=== PATIENT | female | born 2000 | race Two or more races ===

== ENCOUNTER 2020-04-26 04:56 | Emergency (ER) | payer OTHER ==
[2020-04-26 06:29] LABS: ABSOLUTE BASOPHILS # (AUTO) 0.1 10^3/uL (0.0-0.2); ABSOLUTE EOSINOPHILS # (AUTO) 0.2 10^3/uL (0.0-0.6); ABSOLUTE LYMPHOCYTES (AUTO) 2.9 10^3/uL (0.5-4.7); ABSOLUTE MONOCYTES (AUTO) 0.7 10^3/uL (0.1-1.4); ABSOLUTE NEUT (AUTO) 4.9 10^3/uL (1.7-8.2); BASOPHILS % (AUTO) 0.7 % (0-2); EOSINOPHILS % (AUTO) 1.8 % (0-6); HEMATOCRIT 40.2 % (36.0-47.0); HEMOGLOBIN 13.8 g/dL (12.0-15.5); LYMPHOCYTES % (AUTO) 33.5 % (13-45); MEAN CORPUSCULAR HEMOGLOBIN 31.2 pg (27.0-33.4); MEAN CORPUSCULAR HGB CONC 34.3 g/dL (32.0-36.0); MEAN CORPUSCULAR VOLUME 91 fl (80-97); MONOCYTES % (AUTO) 7.8 % (3-13); PLATELET COUNT 195 10^3/uL (150-450); RED BLOOD COUNT 4.43 10^6/uL (3.72-5.28); RED CELL DISTRIBUTION WIDTH 13.1 % (11.5-14.0); SEGMENTED NEUTROPHILS % (AUTO) 56.2 % (42-78); TOTAL CELLS COUNTED % (AUTO) 100 %; WHITE BLOOD COUNT 8.7 10^3/uL (4.0-10.5)
--- NOTE | 2020-04-26 06:34 | ER Document Report ---
ED General - General Chief Complaint: Abdominal Pain Stated Complaint: FLANK PAIN Time Seen by Provider: 04/26/20 06:10 - HPI Notes: Chief complaint: Right lower quadrant pain and nausea History of present illness: Previously healthy 19-year-old nulligravida control tablets with irregular menses taking no other medications and with no known allergies or prior surgery presents reporting she awakened about 90 minutes ago with severe right lower quadrant pain radiating into right flank area. It lasted for about 1/2-hour was associated with nausea without vomiting. No fever chills. No dysuria. Pain was initially 8/10. Currently pain-free and asymptomatic. - Related Data Home Medications: BCP Past Medical History - General Information source: Patient, Relative - Social History Smoking Status: Never Smoker Frequency of alcohol use: None Drug Abuse: None Lives with: Family Family History: Reviewed & Not Pertinent - Medical History Medical History: Negative Surgical Hx: Negative Review of Systems - Review of Systems Notes: Constitutional: Negative for fever. HENT: Negative for sore throat. Eyes: Negative for visual changes. Cardiovascular: Negative for chest pain. Respiratory: Negative for shortness of breath. Gastrointestinal: As per HPI. Genitourinary: As per HPI. Musculoskeletal: Negative for back pain. Skin: Negative for rash. Neurological: Negative for headaches, weakness or numbness. 10 point ROS negative except as marked above and in HPI. Physical Exam - Vital signs Vitals: Temp Pulse Resp BP Pulse Ox 98.1 F 61 18 112/69 97 04/26/20 05:01 04/26/20 05:01 04/26/20 05:01 04/26/20 05:01 04/26/20 05:01 - Notes Notes: GENERAL: Slender female appearing approximately stated age currently in no acute distress. SKIN: Good turgor no rashes. HEAD: Normocephalic atraumatic. EYES: PERRLA. EOMI. Conjunctivae and sclerae clear. EARS: CANALS AND TMS CLEAR. NOSE: CLEAR. MOUTH: Moist mucosa. Good dentition. No stridor or edema. No drooling. NECK: Supple. No masses or thyromegaly. No adenopathy. Carotids 2+ without bruits. No JVD. BACK: Symmetrical without tenderness. CHEST: Respirations unlabored. Breath sounds clear and symmetrical. HEART: Regular rhythm. No murmur gallop or rub. ABDOMEN: Soft nontender without masses, organomegaly or rebound. Bowel sounds normally active. No bruits. GENITALIA: Deferred. EXTREMITIES: No edema. No calf tenderness. Cap refill less than 1.5 seconds. Dorsalis pedis and posterior tibial pulses 3+ and symmetrical. NEUROLOGICAL: GCS 15. Alert and oriented x3. Normal gait. Fluent speech. Cranial nerves II through XII intact. Sensorimotor and cerebellar normal. Normal tone. PSYCHIATRIC: Appropriate affect. Course - Re-evaluation Re-evalutation: 04/26/20 08:36 Initial suspicion was that this pain was likely to be due to a ruptured ovarian cyst. Patient is hemodynamically stable. test negative. CBC and comprehensive metabolic profile normal. Urinalysis normal. Ultrasound d emonstrates small right ovarian cyst and tiny amount of adjacent fluid consistent with rupture of a hemorrhagic cyst. Patient is totally asymptomatic at this time. I have reassured her and advised use of [id number] ibuprofen as needed. She can follow-up with her primary care physician. We reviewed red flag symptoms for return to the emergency department. Findings, clinical impression and plan of treatment have been discussed with patient/family. Understanding of current findings and recommendations has been acknowledged by them and there is agreement regarding disposition and follow-up. - Vital Signs Vital signs: Temp Pulse Resp BP Pulse Ox 98.1 F 61 18 112/69 97 04/26/20 05:01 04/26/20 05:01 04/26/20 05:01 04/26/20 05:01 04/26/20 05:01 - Laboratory Result Diagrams: 04/26/20 05:32 04/26/20 05:32 Discharge - Discharge Clinical Impression: Rupture of cyst of right ovary Condition: Stable Disposition: HOME, SELF-CARE Additional Instructions: Ovarian Cyst Your examination shows the presence of an ovarian cyst. This is a ball of fluid attached to the ovary. Ovarian cysts in women of child-bearing age are usually innocent. However, the cyst may cause pain when it grows or bursts. An innocent ovarian cyst will usually go away by itself. When the cyst becomes painful, you should rest. Pain medication may be required. Some women find a hot water bottle soothing. The pain usually resolves within one or two days. After menopause, an ovarian cyst may mean a tumor, and requires more aggressive evaluation -- usually surgery is recommended to remove or biopsy the cyst. A very large cyst requires evaluation at any age. Most cysts (even the innocent ones) require follow-up examination. Call the doctor or return at any time if the pain increases significantly, if you become faint, or if you experience vaginal bleeding. Return here as needed for new or worsening symptoms: Pain that is worsening or unimproved Uncontrolled vomiting High fever or shaking chills Overall worsening [id number] ibuprofen as needed for pain. Follow-up with your primary care physician or full stack engineer within the next 2 weeks. Referrals: [facility] [Provider Group] - Follow up as needed NORMA MARCH MD [ACTIVE PROVISIONAL STAFF] - Follow up as needed
[2020-04-26 06:51] LABS: ALBUMIN 4.2 g/dL (3.7-5.6); ALKALINE PHOSPHATASE 60 U/L (50-135); ANION GAP 9 (5-19); ASPARTATE AMINO TRANSFERASE 23 U/L (5-30); BILIRUBIN,DIRECT 0.2 mg/dL (0.0-0.4); BILIRUBIN,TOTAL 0.3 mg/dL (0.2-1.3); BLOOD UREA NITROGEN 17 mg/dL (7-20); CALCIUM 9.6 mg/dL (8.4-10.2); CARBON DIOXIDE 26 mmol/L (22-30); CHLORIDE 106 mmol/L (98-107); GLUCOSE 96 mg/dL (75-110); POTASSIUM 4.2 mmol/L (3.6-5.0)
--- NOTE | 2020-04-26 07:50 | RADIOLOGY REPORT (SQ) ---
COMPLETED DATE/TME: 04/26/2020 06:18 EXAM: Abdomen ultrasound. INDICATION: Abdominal pain. TECHNIQUE: Grayscale and Doppler sonogram of the abdomen. COMPARISON: None. FINDINGS: Pancreas: Visualized portion is unremarkable. Aorta: Visualized portion is unremarkable. IVC: Visualized portion is unremarkable. Liver: Parenchyma: Homogenous echotexture. Length: 14.9 cm. Main portal vein: Normal directional flow. Gallbladder: Intraluminal gallstones: Negative. Wall: No thickening. Sonographic Durham sign: Negative. Common bile duct: Diameter: 0.3 cm. Right kidney: Length: 11.3 x 3.5 x 4.6 cm. No hydronephrosis. Left kidney: Length: 11.3 x 4.4 x 4 cm. No hydronephrosis. Spleen: Measures 10.2 cm. IMPRESSION: 1. Unremarkable abdominal ultrasound.
--- NOTE | 2020-04-26 07:55 | RADIOLOGY REPORT (SQ) ---
COMPLETED DATE/TME: 04/26/2020 06:17 EXAM: Pelvic ultrasound. INDICATION: Pelvic pain. TECHNIQUE: Grayscale and Doppler sonogram of the pelvis. Transabdominal technique was used. COMPARISON: None. FINDINGS: Uterus: Anteverted. Measures 6.9 x 3.0 x 4.4 cm. Endometrial stripe: Measures 0.8 cm which is not thickened. Right ovary: Measures 2.4 x 1.9 x 1.8 cm. There is a 1.9 x 1.4 x 1.5 cm complex cyst with mild adjacent fluid. Normal doppler flow. Left ovary: Measures 3.8 x 2.5 x 1.7 cm. Normal doppler flow. Other: Free fluid: Mild IMPRESSION: 1.9 x 1.4 x 1.5 cm complex cyst adjacent to the right ovary with small amount of adjacent fluid. This may represent a hemorrhagic cyst or ruptured cyst. Otherwise, unremarkable exam. No evidence of ovarian torsion.
[2020-04-26 08:22] LABS: APPEARANCE,URINE CLEAR; BILIRUBIN,URINE NEGATIVE (NEGATIVE); COLOR,URINE YELLOW; GLUCOSE, URINE NEGATIVE (NEGATIVE); KETONES,URINE NEGATIVE (NEGATIVE); PROTEIN,URINE NEGATIVE (NEGATIVE); URINE SPECIFIC GRAVITY 1.016; UROBILINOGEN,URINE NEGATIVE mg/dL (<2.0)
[2020-04-26 10:06] VITALS: BP 116/66
== END 2020-04-26 09:17 | disposition home or self-care (01) ==
LOC: ER 04:56
DX: N83.201 Unspecified ovarian cyst, right side (principal); R10.31 Right lower quadrant pain; R11.0 Nausea; R10.9 Unspecified abdominal pain; R11.2 Nausea with vomiting, unspecified
CPT/HCPCS: 36415; 76700; 76856; 80053; 81001; 83690; 84703; 85025; 99284

== ENCOUNTER 2020-05-26 09:59 | Emergency (ER) | payer OTHER ==
--- NOTE | 2020-05-26 10:17 | ER Document Report ---
ED Medical Screen (RME) - General Chief Complaint: Abdominal Pain Stated Complaint: ABDOMINAL PAIN Time Seen by Provider: 05/26/20 10:09 - HPI Notes: 05/26/20 10:15 20-year-old female presents to emergency room today with complaints of right pelvic pain that has become progressively worse over the last 2 weeks, states comes and goes in waves, worse at night and after having a bowel movement. Patient reports she did have a right ovarian cyst rupture at the end of April, she was advised to follow-up with her primary care provider which she did 2 weeks later they were able to do an ultrasound because of lack of resources. Orts she did not have a UTI when they did her urinalysis. Denies any nausea vomiting or diarrhea since the pain has started but she does report that she has had nausea and diarrhea for the last 2 months, no melena. Denies any fevers or chills. Last menstrual cycle was 05/03/2020, states she has been on her menstrual cycle for the last 3 weeks due to being on control. I have greeted and performed a rapid initial assessment of this patient. A comprehensive ED assessment and evaluation of the patient, analysis of test results and completion of the medical decision making process will be conducted by additional ED providers. PHYSICAL EXAMINATION: GENERAL: Well-appearing, well-nourished and in no acute distress. HEAD: Atraumatic, normocephalic. CV: s1, s2 regular LUNGS: No respiratory distress abd: No pelvic or abdomen tenderness on palpation, no distention, no CVA tenderness appreciated bilaterally - Related Data Allergies/Adverse Reactions: No Known Allergies Allergy (Verified 05/26/20 10:06) Physical Exam - Vital signs Vitals: Temp Pulse Resp BP Pulse Ox 98.4 F 82 14 118/74 97 05/26/20 10:04 05/26/20 10:04 05/26/20 10:04 05/26/20 10:04 05/26/20 10:04 Course - Vital Signs Vital signs: Temp Pulse Resp BP Pulse Ox 98.4 F 82 14 118/74 97 05/26/20 10:04 05/26/20 10:04 05/26/20 10:04 05/26/20 10:04 05/26/20 10:04
[2020-05-26 10:52] LABS: ABSOLUTE MONOCYTES (AUTO) 0.5 10^3/uL (0.1-1.4); ABSOLUTE NEUT (AUTO) 1.4 10^3/uL (1.7-8.2); APPEARANCE,URINE CLEAR; BASOPHILS % (AUTO) 0.9 % (0-2); BILIRUBIN,URINE NEGATIVE (NEGATIVE); COLOR,URINE YELLOW; EOSINOPHILS % (AUTO) 0.8 % (0-6); GLUCOSE, URINE NEGATIVE (NEGATIVE); HEMOGLOBIN 15.6 g/dL (12.0-15.5); KETONES,URINE NEGATIVE (NEGATIVE); LEUKOCYTE ESTERASE,URINE NEGATIVE (NEGATIVE); LYMPHOCYTES % (AUTO) 49.6 % (13-45); MEAN CORPUSCULAR HEMOGLOBIN 30.3 pg (27.0-33.4); MEAN CORPUSCULAR VOLUME 89 fl (80-97); MONOCYTES % (AUTO) 13.2 % (3-13); NITRITE,URINE NEGATIVE (NEGATIVE); PLATELET COUNT 187 10^3/uL (150-450); PROTEIN,URINE NEGATIVE (NEGATIVE); RED BLOOD COUNT 5.16 10^6/uL (3.72-5.28); RED CELL DISTRIBUTION WIDTH 12.8 % (11.5-14.0); SEGMENTED NEUTROPHILS % (AUTO) 35.5 % (42-78); TOTAL CELLS COUNTED % (AUTO) 100 %; URINE SPECIFIC GRAVITY 1.017; UROBILINOGEN,URINE NEGATIVE mg/dL (<2.0)
--- NOTE | 2020-05-26 10:54 | ER Document Report ---
ED General - General Chief Complaint: Lower Abdominal Pain Stated Complaint: ABDOMINAL PAIN Time Seen by Provider: 05/26/20 10:09 Primary Care Provider: MOHAMUD GRANGER PA-C [Primary Care Provider] - Follow up in 1 week NORMA MARCH MD [ACTIVE PROVISIONAL STAFF] - Follow up in 3-5 days (for [facility]ABBIT [facility]ER follow up) - [facility] Notes: 20-year-old female with past medical history of ovarian cyst to the emergency department with complaints of off and on right pelvic pain that is been ongoing for 2 weeks. She states sometimes she feels a little bit lightheaded with it but denies any nausea, vomiting, diarrhea, fevers, chills, loss of appetite. She states that she was diagnosed with a ruptured ovarian cyst in April. She tried to get in with her primary care to have a follow-up ultrasound but the office did not have capability to perform the ultrasound. She is currently on the Depo shot. She supposed to get her next one June 11. She is . She denies any vaginal discharge or urinary complaints. Denies any flank pain. She states her pain is a 2 out of 5. She has been taking 200 mg of ibuprofen twice a day which she states has had minimal control of her pain. - Related Data Allergies/Adverse Reactions: No Known Allergies Allergy (Verified 05/26/20 10:06) Past Medical History - General Information source: Patient - Social History Smoking Status: Never Smoker Chew tobacco use (# tins/day): No Frequency of alcohol use: None Drug Abuse: None Family History: Reviewed & Not Pertinent Patient has homicidal ideation: No Review of Systems - Review of Systems Constitutional: denies: Chills, Fever EENT: No symptoms reported Cardiovascular: denies: Chest pain, Palpitations, Heart racing, Orthopnea, Dyspnea, Syncope, Dizziness, Lightheaded Respiratory: denies: Cough, Short of breath Gastrointestinal: Abdominal pain. denies: Diarrhea, Nausea, Vomiting Female Genitourinary: Vaginal bleeding - Menstrual vaginal bleeding for 2 weeks Musculoskeletal: No symptoms reported Skin: No symptoms reported Hematologic/Lymphatic: No symptoms reported Neurological/Psychological: No symptoms reported -: Yes All other systems reviewed and negative Physical Exam - Vital signs Vitals: Temp Pulse Resp BP Pulse Ox 98.4 F 82 14 118/74 97 05/26/20 10:04 05/26/20 10:04 05/26/20 10:04 05/26/20 10:04 05/26/20 10:04 Interpretation: Normal - General General appearance: Appears well, Alert In distress: None - HEENT Head: Normocephalic, Atraumatic Eyes: Normal Pupils: PERRL Neck: Normal, Supple - Respiratory Respiratory status: No respiratory distress Chest status: Nontender Breath sounds: Normal. No: Productive cough, Rales, Rhonchi, Wheezing Chest palpation: Normal - Cardiovascular Rhythm: Regular Heart sounds: Normal auscultation Murmur: No - Abdominal Inspection: Normal Distension: No distension Bowel sounds: Normal Tenderness: Tender - Mild tenderness to palpation to the right pelvic abdomen. There is no tenderness at McBurney's point. Negative Durham sign. No rebound or guarding. No: McBurney's point, Durham's sign, Guarding, Rebound Organomegaly: No organomegaly - Back Back: Normal, Nontender. No: CVA tenderness - Extremities General upper extremity: Normal inspection, Nontender, Normal color, Normal ROM, Normal temperature General lower extremity: Normal inspection, Nontender, Normal color, Normal ROM, Normal temperature, Normal weight bearing - Neurological Neuro grossly intact: Yes Cognition: Normal Orientation: AAOx4 Gaye Coma Scale Eye Opening: Spontaneous [place]phath Coma Scale Verbal: Oriented [place]ath Coma Scale Motor: Obeys Commands Gaye Coma Scale Total: 15 Speech: Normal Cranial nerves: Normal Cerebellar coordination: Normal Motor strength normal: LUE, RUE, LLE, RLE Additional motor exam normals: Equal location man Sensory: Normal - Psychological Associated symptoms: Normal affect, Normal mood - Skin Skin Temperature: Warm Skin Moisture: Dry Skin Color: Normal Course - Re-evaluation Re-evalutation: 05/26/20 12:36 US negative for right ovarian cyst. The cyst that was seen previously has resolved. patient with RLQ abd pain, concern for other etiology than ovarian cyst, will obtain CT to eval for appendicitis. Updated patient about the plan and she agrees with the plan. Impression: Right lower quadrant abdominal pain. Ultrasound does not illustrate ovarian cyst and CT did not show appendicitis. Labs are reassuring. We will get the patient to give us a dirty urine sample to test for gonorrhea and chlamydia although she does not believe that she has an STD. However follow-up with NEIGHBORHOOD AIDE. Return if any worsening symptoms. Patient agrees with the plan. - Vital Signs Vital signs: Temp Pulse Resp BP Pulse Ox 98.4 F 78 16 120/78 98 05/26/20 10:04 05/26/20 15:06 05/26/20 15:06 05/26/20 15:06 05/26/20 15:06 - Laboratory Result Diagrams: 05/26/20 10:20 05/26/20 10:20 Laboratory results interpreted by me: 05/26/20 05/26/20 05/26/20 10:20 10:20 10:20 Hgb 15.6 H Lymph % (Auto) 49.6 H Braxton % (Auto) 13.2 H Absolute Neuts (auto) 1.4 L Seg Neutrophils % 35.5 L Total Protein 8.4 H Urine Blood MODERATE H - Diagnostic Test Radiology reviewed: Image reviewed, Reports reviewed Discharge - Discharge Clinical Impression: Right lower quadrant abdominal pain Condition: Stable Disposition: HOME, SELF-CARE Instructions: Pelvic Pain ([facility]) Additional Instructions: Follow-up with RABBIT DRESSER without fail in the next week. Return if any worsening symptoms. Prescriptions: Naproxen [Naprosyn 375 Mg Tablet] 375 mg PO BID #20 tablet Referrals: MOHAMUD GRANGER PA-C [Primary Care Provider] - Follow up in 1 week NORMA MARCH MD [ACTIVE PROVISIONAL STAFF] - Follow up in 3-5 days (for [facility] [employer]ER follow up)
[2020-05-26 11:07] LABS: ALBUMIN 4.8 g/dL (3.5-5.0); ALKALINE PHOSPHATASE 61 U/L (38-126); ANION GAP 13 (5-19); ASPARTATE AMINO TRANSFERASE 22 U/L (14-36); BILIRUBIN,DIRECT 0.1 mg/dL (0.0-0.4); BILIRUBIN,TOTAL 0.4 mg/dL (0.2-1.3); BLOOD UREA NITROGEN 11 mg/dL (7-20); CALCIUM 9.6 mg/dL (8.4-10.2); CARBON DIOXIDE 25 mmol/L (22-30); CHLORIDE 104 mmol/L (98-107); GLUCOSE 95 mg/dL (75-110); POTASSIUM 4.1 mmol/L (3.6-5.0); TOTAL PROTEIN 8.4 g/dL (6.3-8.2)
[2020-05-26] MEDS ORDERED: KETOROLAC TROMETHAMINE 60 MG/2 ML SDV IM ONE (11:59)
--- NOTE | 2020-05-26 12:24 | RADIOLOGY REPORT (SQ) ---
EXAM DESCRIPTION: U/S NON OB PEL TV W/DOPPLER IMAGES COMPLETED DATE/TIME: 05/26/2020 11:52 am REASON FOR STUDY: hxRovarian cyst rupture,worsening pain R [id number] COMPARISON: 04/26/2020 TECHNIQUE: Dynamic and static grayscale images acquired of the pelvis via transvaginal approach and recorded on PACS. Additional selected color Doppler and spectral images recorded. LIMITATIONS: None. FINDINGS: UTERUS: Contour normal. No mass. ENDOMETRIAL STRIPE: No focal or generalized thickening. No masses. CERVIX: No nabothian cysts. Scant fluid is seen within the endocervical canal. RIGHT OVARY AND DOPPLER: Normal size. No worrisome masses. Normal arterial vascular flow without evid ence for torsion. A previously demonstrated hemorrhagic cyst has resolved. LEFT OVARY AND DOPPLER: Normal size. No worrisome masses. Normal arterial vascular flow without evide nce for torsion. FREE FLUID: None noted. OTHER: No other significant finding. MEASUREMENTS: UTERUS: 6.0 x 3.9 x 2.7 cm ENDOMETRIAL STRIPE: 0.4 cm RIGHT OVARY: 3.9 x 1.7 x 1.6 cm LEFT OVARY: 3.3 x 2.9 x 1.1 cm IMPRESSION: Normal sonographic appearance of the uterus and adnexa. Notably, interval resolution of a previously demonstrated hemorrhagic cyst within the right ovary. TECHNICAL DOCUMENTATION: JOB ID: [id number] 2010 [employer]- All Rights Reserved Rev-11/17 Reading location - IP/workstation name: [email or web address]
[2020-05-26] MEDS ORDERED: KETOROLAC TROMETHAMINE INJ/PF 30 MG/1 ML SDV IV ONE (12:36)
--- NOTE | 2020-05-26 14:29 | RADIOLOGY REPORT (SQ) ---
EXAM DESCRIPTION: CT ABD/PELVIS WITH IV ONLY IMAGES COMPLETED DATE/TIME: 05/26/2020 2:03 pm REASON FOR STUDY: right lower quadrant abdominal pain COMPARISON: None. TECHNIQUE: CT scan of the abdomen and pelvis performed using helical scanning technique with dynamic intravenous contrast injection. No oral contrast. Images reviewed with lung, soft tissue, and bone windows. Reconstructed coronal and sagittal MPR images reviewed. Delayed images for evaluation of the urinary system also acquired. All images stored on PACS. All CT scanners at this facility use dose modulation, iterative reconstruction, and/or weight based d osing when appropriate to reduce radiation dose to as low as reasonably achievable (ALARA). [facility]: Dose Right [facility]: CareDose [facility]: Dose Right [facility]: Teradose 4D [facility]: Kwaab CONTRAST TYPE AND DOSE: contrast/concentration: Isovue 350.00 mmol/ml; Total Contrast Delivered: 70. 0 ml; Total Saline Delivered: 65.0 ml RENAL FUNCTION: BUN 11; creatinine 0.8 RADIATION DOSE: CT Rad equipment meets quality standard of care and radiation dose reduction techniq ues were employed. CTDIvol: 5.7 - 7.1 mGy. DLP: 680 mGy-cm.. LIMITATIONS: None. FINDINGS: LOWER CHEST: No significant findings. No nodules or infiltrates. LIVER: Normal size. No masses. No dilated ducts. SPLEEN: Normal size. No focal lesions. PANCREAS: No masses. No significant calcifications. No adjacent inflammation or peripancreatic fluid collections. Pancreatic duct not dilated. GALLBLADDER: No identified stones by CT criteria. No inflammatory changes to suggest cholecystitis. ADRENAL GLANDS: No significant masses or asymmetry. RIGHT KIDNEY AND URETER: No solid masses. No significant calcifications. No hydronephrosis or hyd roureter. LEFT KIDNEY AND URETER: No solid masses. No significant calcifications. No hydronephrosis or hydr oureter. AORTA AND VESSELS: No aneurysm. No dissection. Renal arteries, SMA, celiac without stenosis. RETROPERITONEUM: No retroperitoneal adenopathy, hemorrhage or masses. BOWEL AND PERITONEAL CAVITY: No masses or inflammatory changes. No free fluid or peritoneal masses. APPENDIX: Normal. PELVIS: No mass. No free fluid. Normal bladder. ABDOMINAL WALL: No masses. No hernias. BONES: No significant or acute findings. OTHER: No other significant finding. IMPRESSION: No evidence of acute intra-abdominal infectious/inflammatory process TECHNICAL DOCUMENTATION: JOB ID: [id number] Quality ID # [id number]: Final reports with documentation of one or more dose reduction techniques (e.g., Au tomated exposure control, adjustment of the mA and/or kV according to patient size, use of iterative reconstruction technique) 2010 [employer]- All Rights Reserved Reading location - IP/workstation name: [email or web address]
[2020-05-26 15:07] VITALS: BP 120/78
[2020-05-26 16:56] LABS: CHLAM PCR NOT DETECTED (NOT DETECT)
== END 2020-05-26 15:06 | disposition home or self-care (01) ==
LOC: ER 09:59
DX: R10.31 Right lower quadrant pain (principal); R10.2 Pelvic and perineal pain; Z79.3 Long term (current) use of hormonal contraceptives
CPT/HCPCS: 99285; 96372; 96374; 36415; 84702; 85025; 80053; 81001; 87491; 87591; 76830; 93976; 74177; J1885